=== PATIENT | female | born 1985 | race Caucasian/White ===

== ENCOUNTER 2017-01-12 20:01 | Observation (INO) | payer OTHER ==
[~2017-01-12] VITALS: Ht 160 cm; Wt 109.1 kg
[2017-01-12 20:05] VITALS: BP 139/83; PULSE 117; RESP 18; TEMP 98.3; O2SAT 100
[2017-01-12 20:44] LABS: MEAN CORPUSCULAR HGB CONC 28.5 % (32.0-36.0)
[2017-01-12] MEDS ORDERED: SODIUM CHLORIDE 0.9% FLUSH 5 ML FLUSH IVF PRN (20:45)
[2017-01-12] MEDS ORDERED: ASPIRIN 325 MG TAB PO ONE (20:45)
--- NOTE | 2017-01-12 20:48 | PD ---
HPI Chief Complaint: Syncope/Near-Syncope Time Seen by Provider: 20:03 Travel History International Travel<30 days: No Contact w/Intl Traveler<30days: No Traveled to known affect area: No History of Present Illness HPI 31-year-old female arrives to the ER with a complaint of dizziness, sensation of a racing heart and a chest pressure in the high sternum. 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 Duration is been a couple hours. In the ER she reports mild palpitations as well as mild shortness of breath at rest. With regard to the heaviness about the sternum it has been intermittently present since August and is most commonly associated with over exertion and working long hours. She denies excessive caffeine intake or use of any stimulants. The patient does note taking an [id number] diuretic. Occasionally she takes ibuprofen. Finally she complains of low back pain intermittent chronic in nature with acute worsening today. Occasional paresthesias of both legs are reported however there is no weakness nor is there change in bowel bladder habits or perianal perineal paresthesias/numbness. [facility] Past Medical History Medical History: Denies Significant Hx Diminished Hearing: No Immunizations Current: Yes Tetanus Vaccination: > 5 Years Influenza Vaccination: No ?: Unknown : 0 Para: 0 Past Surgical History Cardiac Surgery: Yes (stent placed) Social History Alcohol Use: Yes (rarely) Tobacco Use: No Substance Use: No Allergies-Medications (Allergen,Severity, Reaction): Coded Allergies: No Known Allergies (Unverified , 01/12/17) Reported Meds & Prescriptions Reported Meds & Active Scripts Active No Active Prescriptions or Reported Medications Review of Systems Except as stated in HPI: all other systems reviewed are Neg General / Constitutional: No: Fever, Chills Cardiovascular: No: Palpitations, Irregular Rhythm Physical Exam Narrative GENERAL: 31-year-old female pleasant mild to moderate distress SKIN: Warm and dry. HEAD: Atraumatic. Normocephalic. EYES: Pupils equal round and reactive. No nystagmus. ENT: No nasal bleeding or discharge. Mucous membranes pink and moist. NECK: Trachea midline. No JVD. CARDIOVASCULAR: Rhythm is regular. Tachycardia to about 115 breath per minute. RESPIRATORY: No accessory muscle use. Clear to auscultation. Breath sounds equal bilaterally. GASTROINTESTINAL: Abdomen soft, non-tender, nondistended. Hepatic and splenic margins not palpable. MUSCULOSKELETAL: No obvious deformities. No clubbing. No cyanosis. No edema. NEUROLOGICAL: Awake and alert. No obvious cranial nerve deficits. Motor grossly within normal limits. Normal speech. PSYCHIATRIC: Appropriate mood and affect; insight and judgment normal. Data Data Last Documented VS Vital Signs Date Time Temp Pulse Resp B/P Pulse Ox O2 Delivery O2 Flow Rate FiO2 01/12/17 20:05 98.3 117 18 139/83 100 Orders Electrocardiogram (01/12/17 20:41) Basic Metabolic Panel (Bmp) (01/12/17 20:41) Ckmb (Isoenzyme) Profile (01/12/17 20:41) Complete Blood Count With Diff (01/12/17 20:41) D-Dimer (01/12/17 20:41) Magnesium (Mg) (01/12/17 20:41) Troponin I (01/12/17 20:41) Chest, Single Ap (01/12/17 20:41) Ecg Monitoring (01/12/17 20:41) Iv Access Insert/Monitor (01/12/17 20:41) Oximetry (01/12/17 20:41) Oxygen Administration (01/12/17 20:41) Sodium Chloride 0.9% Flush (Ns Flush) (01/12/17 20:45) Aspirin (Aspirin) (01/12/17 20:45) Sodium Chlor 0.9% 1000 Ml Inj (Ns 1000 M (01/12/17 21:00) Type And Screen (01/12/17 22:17) Red Blood Cells (Rbc) (01/12/17 22:17) Blood Product Administration .UPON TRANSFUSION (01/12/17:17) Sodium Chlor 0.9% 250 Ml Inj (Ns 250 Ml (01/12/17 22:30) Ferritin (01/12/17 22:48) Iron/Tibc Profile (01/12/17 22:48) Place In Observation (01/12/17 ) Vital Signs (Adult) Q4H (01/12/17 23:01) Activity Oob With Assistance (01/12/17 23:01) Dairy Tester / Telemetry .CONTINUOUS (01/12/17 23:01) Intake + Output DRU.QSHIFT (01/12/17 23:01) Diet Regular Basic (01/13/17 Breakfast) Sodium Chloride 0.9% Flush (Ns Flush) (01/12/17 23:15) Sodium Chloride 0.9% Flush (Ns Flush) (01/13/17 09:00) Ondansetron Inj (Zofran Inj) (01/12/17 23:15) Bisacodyl Supp (Dulcolax Supp) (01/12/17 23:15) Comprehensive Metabolic Panel (01/13/17 06:00) Complete Blood Count With Diff (01/13/17 06:00) Scd Bilateral/Knee High DRU.BID (01/12/17 23:01) [place] Bilateral/Knee High DRU.QSHIFT (01/12/17 23:01) Acetaminophen (Tylenol) (01/12/17 23:15) Acetamin-Hydrocod 325-5 Mg ([place] 5-325 (01/12/17 23:15) Acetamin-Hydrocod 325-10 Mg ([place] 10-32 (01/12/17 23:15) Troponin I (01/13/17 00:00) Troponin I (01/13/17 06:00) Admit Order (Ed Use Only) (01/12/17 23:37) Labs Laboratory Tests Test 01/12/17 01/12/17 01/12/17 21:15 23:00 23:04 White Blood Count 11.2 TH/MM3 Red Blood Count 3.30 MIL/MM3 Hemoglobin 5.2 GM/DL Hematocrit 18.1 % Mean Corpuscular Volume 54.8 FL Mean Corpuscular Hemoglobin 15.6 PG Mean Corpuscular Hemoglobin 28.5 % Concent Red Cell Distribution Width 24.3 % Platelet Count 289 TH/MM3 Mean Platelet Volume 9.5 FL Neutrophils (%) (Auto) 87.9 % Lymphocytes (%) (Auto) 6.9 % Monocytes (%) (Auto) 4.3 % Eosinophils (%) (Auto) 0.2 % Basophils (%) (Auto) 0.7 % Neutrophils # (Auto) 9.9 TH/MM3 Lymphocytes # (Auto) 0.8 TH/MM3 Monocytes # (Auto) 0.5 TH/MM3 Eosinophils # (Auto) 0.0 TH/MM3 Basophils # (Auto) 0.1 TH/MM3 CBC Comment AUTO DIFF Differential Comment AUTO DIFF CONFIRMED Ovalocytes 2+ Keratocytes 1+ D-Dimer Quantitative (PE/DVT) 0.41 MG/L FEU Sodium Level 136 MEQ/L Potassium Level 4.4 MEQ/L Chloride Level 106 MEQ/L Carbon Dioxide Level 21.3 MEQ/L Anion Gap 9 MEQ/L Blood Urea Nitrogen 13 MG/DL Creatinine 0.86 MG/DL Estimat Glomerular Filtration 78 ML/MIN Rate Random Glucose 96 MG/DL Calcium Level 8.5 MG/DL Magnesium Level 2.1 MG/DL Total Creatine Kinase 59 U/L Troponin I LESS THAN 0.02 NG/ML Iron Level 11 MCG/DL Total Iron Binding Capacity 574 MCG/DL Percent Iron Saturation 1.9 % Ferritin 2 NG/ML Blood Type A POSITIVE A POSITIVE Antibody Screen NEGATIVE Crossmatch Leukocyte-Reduced Red Blood Cells Blood Bank Comment MDM Medical Decision Making Medical Screen Exam Complete: Yes Emergency Medical Condition: Yes Medical Record Reviewed: Yes Differential Diagnosis Electrolyte imbalance, arrhythmia, vertigo, anemia, PE, pneumonia, UTI, intrauterine Narrative Course EKG reveals a sinus rhythm with a rate of 116 it's interpreted by the machine as atrial flutter tachycardia with rapid ventricular response however there are clear and obvious P waves in leads I and II, axis normal CBC & BMP Diagram 01/12/17 21:15 Troponin undetectable 2 units PRBCs ordered. The patient be admitted for treatment of symptomatic anemia. she reports heavy menstruation for the past month. d/w Dr Fraire. Diagnosis Primary Impression: Heavy menstrual bleeding Qualified Code: N92.0 - Menorrhagia with regular cycle Additional Impressions: Near syncope Symptomatic anemia Chest pain Qualified Code: R07.9 - Chest pain, unspecified type Admitting Information Admitting Physician Requests: Admit Scripts No Active Prescriptions or Reported Meds José Miguel Skelton MD Jan 12, 2017 20:48
[2017-01-12] MEDS ORDERED: SODIUM CHLOR 0.9% 1000 ML INJ 1,000 ML IV ONE (21:00)
--- NOTE | 2017-01-12 21:15 | RADRPT ---
EXAM DATE/TIME: 01/12/2017 21:06 [place] COMPARISON: No previous studies available for comparison. INDICATIONS : Chest pain. MEDICAL HISTORY : None. SURGICAL HISTORY : None. ENCOUNTER: Initial ACUITY: 1 day PAIN SCORE: 8/10 LOCATION: Bilateral chest FINDINGS: A single view of the chest demonstrates the lungs to be symmetrically aerated without evidence of mas s, infiltrate or effusion. The cardiomediastinal contours are unremarkable. Osseous structures are intact. CONCLUSION: Normal examination. Salvador Decker MD on January 12, 2017 at 21:14 Board Certified Radiologist. This report was verified electronically.
[2017-01-12 22:10] LABS: AUTOMATED NEUTROPHIL # 9.9 TH/MM3 (1.8-7.7); BASOPHIL # 0.1 TH/MM3 (0-0.2); BASOPHIL % 0.7 % (0.0-2.0); EOSINOPHIL % 0.2 % (0.0-4.0); LYMPH % 6.9 % (9.0-44.0); LYMPHOCYTE # 0.8 TH/MM3 (1.0-4.8); MEAN CELL VOLUME 54.8 FL (80.0-100.0); MEAN CORPUSCULAR HEMOGLOBIN 15.6 PG (27.0-34.0); MONO % 4.3 % (0.0-8.0); NEUT % 87.9 % (16.0-70.0); PLATELET COUNT 289 TH/MM3 (150-450); RED CELL DISTRIBUTION WIDTH 24.3 % (11.6-17.2); WHITE BLOOD COUNT 11.2 TH/MM3 (4.0-11.0)
[2017-01-12 22:11] LABS: HEMO FLAGS AUTO DIFF
[2017-01-12 22:12] LABS: HEMATOCRIT 18.1 % (35.0-46.0)
[2017-01-12 22:15] LABS: ANION GAP 9 MEQ/L (5-15); BICARBONATE 21.3 MEQ/L (21.0-32.0); BLOOD UREA NITROGEN 13 MG/DL (7-18); CHLORIDE 106 MEQ/L (98-107); GLOMERULAR FILTRATION RATE 78 ML/MIN (>89); MAGNESIUM 2.1 MG/DL (1.5-2.5); POTASSIUM 4.4 MEQ/L (3.5-5.1); SODIUM (NA) 136 MEQ/L (136-145)
[2017-01-12] MEDS ORDERED: SODIUM CHLOR 0.9% 250 ML INJ 250 ML IV ONE (22:30)
[2017-01-12 22:32] LABS: CREATINE KINASE 59 U/L (26-192); KERATOCYTES 1+ (NORMAL); OVALOCYTES 2+ (NORMAL); SCAN/DIFF AUTO DIFF CONFIRMED
--- NOTE | 2017-01-12 23:09 | HHI.HP ---
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 States she had sudden onset of palpitations, dizziness, chest pain and weakness followed by near syncope. Denies history of similar symptoms. On arrival, BP 139/83, HR 117, O2 sat 100% on RA, Afebrile. WBC 11.2. Hgb 5.2. Trop negative. Chemistry unremarkable. CXR w/ no acute findings. Pt reports h/o heavy menstrual bleeding which has been ongoing since August 2016. States prior to that, she was seen by local Orthodontic Assistant for similar symptoms and was given Progesterone which she states "worked for a little while". Has been having almost daily, heavy bleeding for the last 2-3 months. Has not followed up w/ [facility] since her first visit for further evaluation. 2u pRBC ordered in ER, pending transfusion. Review of Systems Except as stated in HPI: all other systems reviewed are Neg ROS: 14 point review of systems otherwise negative. Past Family Social History Past Medical History PMH: Heavy Menses Past Surgical History PAST SURGICAL HISTORY: Cardiac Stent Allergies: Coded Allergies: No Known Allergies (Unverified , 01/12/17) Family History PAST FAMILY HISTORY: Reviewed. No h/o DM or CAD Social History PAST SOCIAL HISTORY: Negative for alcohol, tobacco or drugs. Physical Exam Vital Signs Vital Signs Date Time Temp Pulse Resp B/P Pulse Ox O2 Delivery O2 Flow Rate FiO2 01/12/17 20:05 98.3 117 18 139/83 100 Physical Exam PE: GENERAL: Pleasant young white female in no acute distress. Mild pallor. HEENT: PERRLA, EOMI. No scleral icterus or conjunctival pallor. No lid lag or facial droop. CARDIOVASCULAR: Regular rate and rhythm. No obvious murmurs to auscultation. No chest tenderness to palpation. RESPIRATORY: No obvious rhonchi or wheezing. Clear to auscultation. Breath sounds equal bilaterally. GASTROINTESTINAL: Abdomen soft, non-tender, nondistended. BS normal. MUSCULOSKELETAL: Extremities without clubbing, cyanosis, or edema. No obvious deformities. NEUROLOGICAL: Awake, alert and oriented x4. No focal neurologic deficits. Moving both upper and lower extremities spontaneously. Laboratory Laboratory Tests Test 01/12/17 21:15 White Blood Count 11.2 Red Blood Count 3.30 Hemoglobin 5.2 Hematocrit 18.1 Mean Corpuscular Volume 54.8 Mean Corpuscular Hemoglobin 15.6 Mean Corpuscular Hemoglobin 28.5 Concent Red Cell Distribution Width 24.3 Platelet Count 289 Mean Platelet Volume 9.5 Neutrophils (%) (Auto) 87.9 Lymphocytes (%) (Auto) 6.9 Monocytes (%) (Auto) 4.3 Eosinophils (%) (Auto) 0.2 Basophils (%) (Auto) 0.7 Neutrophils # (Auto) 9.9 Lymphocytes # (Auto) 0.8 Monocytes # (Auto) 0.5 Eosinophils # (Auto) 0.0 Basophils # (Auto) 0.1 CBC Comment AUTO DIFF Differential Comment AUTO DIFF CONFIRMED Ovalocytes 2+ Keratocytes 1+ D-Dimer Quantitative (PE/DVT) 0.41 Sodium Level 136 Potassium Level 4.4 Chloride Level 106 Carbon Dioxide Level 21.3 Anion Gap 9 Blood Urea Nitrogen 13 Creatinine 0.86 Estimat Glomerular Filtration 78 Rate Random Glucose 96 Calcium Level 8.5 Magnesium Level 2.1 Total Creatine Kinase 59 Troponin I LESS THAN 0.02 Result Diagram: 01/12/17211401/12/172114 Assessment and Plan Problem List: (1) Near syncope ICD Code: R55 Status: Acute (2) Symptomatic anemia ICD Code: D64.9 Status: Acute (3) Chest pain ICD Code: R07.9 Status: Acute (4) Heavy menstrual bleeding ICD Code: N92.0 Status: Acute Assessment and Plan A/P: 1. Near Syncope: secondary to hypovolemia from blood loss. Admit for Observation, telemetry, transfuse. 2. Symptomatic Anemia: Hgb 5.2, no previous labs for comparison. Reports heavy, almost daily menstrual bleeding x2-3 months, previously seen by Orthodontic Assistant and placed on Progesterone w/ only temporary improvement. Has not followed up w / Orthodontic Assistant since, states she's pending insurance so she can switch doctors. Check Ferritin, TIBC/Iron, 2u pRBC ordered for transfusion, currently pending. Check Hgb/Hct following transfusion, will likely require additional units. Follow up w/ Orthodontic Assistant for abnormal menses. 3. Chest Pain: Likely secondary to symptomatic anemia and near syncope. Initial trop negative. Place on telemetry, check serial enzymes. 4. DVT Prophylaxis: SCD/Teds. 5. Social work for d/c planning as needed. 6. Case discussed w/ ER physician at length. Laura Fraire MD Jan 12, 2017 23:09
[2017-01-12] MEDS ORDERED: ACETAMINOPHEN 325 MG TAB PO PRN (23:15)
[2017-01-12] MEDS ORDERED: BISACODYL 10 MG SUPP PR PRN (23:15)
[2017-01-12] MEDS ORDERED: ACETAMINOPHEN/HYDROcodone 325 MG/5 MG TAB PO PRN (23:15)
[2017-01-12] MEDS ORDERED: SODIUM CHLORIDE 0.9% FLUSH 5 ML FLUSH FLUSH PRN (23:15)
[2017-01-12] MEDS ORDERED: ONDANSETRON HCL 4 MG/2 ML VIAL IVP PRN (23:15)
[2017-01-12] MEDS ORDERED: ACETAMINOPHEN/HYDROcodone 325 MG/10 MG TAB PO PRN (23:15)
[2017-01-13] VITALS (26 sets, daily range): BP systolic 115–145; BP diastolic 66–92; PULSE 84–106; RESP 16–20; TEMP 97.2–98.3; O2SAT 97–100
[2017-01-13 00:11] LABS: FERRITIN 2 NG/ML (8-252); TRANSFERRIN IRON PROFILE 410 MG/DL (200-360)
[2017-01-13 09:37] LABS: AUTOMATED NEUTROPHIL # 6.1 TH/MM3 (1.8-7.7); BASOPHIL # 0.1 TH/MM3 (0-0.2); BASOPHIL % 0.9 % (0.0-2.0); EOSINOPHIL # 0.1 TH/MM3 (0-0.4); EOSINOPHIL % 0.7 % (0.0-4.0); LYMPH % 13.2 % (9.0-44.0); MEAN CELL VOLUME 60.2 FL (80.0-100.0); MEAN CORPUSCULAR HGB CONC 31.5 % (32.0-36.0); MONO % 7.7 % (0.0-8.0); NEUT % 77.5 % (16.0-70.0); PLATELET COUNT 259 TH/MM3 (150-450); RED BLOOD COUNT 3.55 MIL/MM3 (4.00-5.30); RED CELL DISTRIBUTION WIDTH 31.3 % (11.6-17.2); WHITE BLOOD COUNT 7.8 TH/MM3 (4.0-11.0)
[2017-01-13 09:41] LABS: HEMO FLAGS AUTO DIFF
[2017-01-13 09:47] LABS: HEMATOCRIT 21.4 % (35.0-46.0)
[2017-01-13 10:14] LABS: ALKALINE PHOSPHATASE 56 U/L (45-117); ALT (GPT) 15 U/L (10-53); ANION GAP 12 MEQ/L (5-15); AST (GOT) 7 U/L (15-37); BICARBONATE 21.8 MEQ/L (21.0-32.0); BLOOD UREA NITROGEN 9 MG/DL (7-18); CHLORIDE 105 MEQ/L (98-107); GLOMERULAR FILTRATION RATE 89 ML/MIN (>89); POTASSIUM 3.9 MEQ/L (3.5-5.1); SODIUM (NA) 139 MEQ/L (136-145); TOTAL BILIRUBIN ADULT 1.1 MG/DL (0.2-1.0)
[2017-01-13 10:45] LABS: OVALOCYTES 1+ (NORMAL)
[2017-01-13] MEDS ORDERED: SODIUM CHLOR 0.9% 250 ML INJ 250 ML IV ONE (10:45)
[2017-01-13 10:46] LABS: PLATELET ESTIMATE SMEAR NORMAL (NORMAL); PLATELET MORPHOLOGY NORMAL (NORMAL); SCAN/DIFF AUTO DIFF CONFIRMED
--- NOTE | 2017-01-13 11:02 | HHI.PR ---
Subjective Remarks Follow-up for symptomatic anemia with menometrorrhagia. The patient reports feeling much better today after receiving two units pRBCs, however hemoglobin still 6.7. She denies any headache, lightheadedness, dizziness, chest pain, palpitations, shortness of breath today. She still has ongoing menstrual bleeding, however not as heavy as it has been recently. She has been on progesterone in the past which helped slightly while she was taking it however the bleeding returns as soon as she stops the medication. She has bleeding on most days throughout the month, only stops for 1-3days at a time. Objective Vitals Vital Signs Date Time Temp Pulse Resp B/P Pulse Ox O2 Delivery O2 Flow Rate FiO2 01/13/17 07:46 97.2 97 18 128/77 99 01/13/17 07:16 98.0 92 17 139/76 98 01/13/17 06:12 98.3 93 18 115/77 99 01/13/17 05:54 98.1 94 17 130/74 99 01/13/17 05:34 98.1 88 17 128/67 98 01/13/17 05:06 98.3 91 18 131/68 100 01/13/17 05:04 98.2 89 18 131/68 100 01/13/17 03:30 98.1 91 16 122/68 100 01/13/17 02:35 88 01/13/17 02:28 98.0 97 18 127/71 100 01/13/17 02:08 98.0 94 18 126/71 100 01/13/17 01:48 98.2 93 17 132/88 100 01/13/17 01:16 98.0 93 18 126/82 100 01/12/17 20:05 98.3 117 18 139/83 100 I/O 01/12/17 01/12/17 01/12/17 01/13/17 01/13/17 01/13/17 07:00 15:00 23:00 07:00 15:00 23:00 Intake Total 490 ml Balance 490 ml Intake Oral 240 ml Packed Cells 250 ml Result Diagram: 01/13/1790601/13/17906 Imaging Last Impressions Chest X-Ray 01/12/172040 Signed Impressions: Service Date/Time: December 21:06 - CONCLUSION: Normal examination. Salvador Decker MD Objective Remarks GENERAL: Well-nourished, well-developed obese female patient in [facility]. SKIN: Warm and dry. No rash. Pale. HEAD: Normocephalic. Atraumatic. EYES: Pupils equal and round. No scleral icterus. No injection or drainage. ENT: No nasal bleeding or discharge. Mucous membranes pink and moist. NECK: Supple. Trachea midline. CARDIOVASCULAR: Regular rate and rhythm. S1, S2 noted. No murmur appreciated. RESPIRATORY: No accessory muscle use. Clear to auscultation. Breath sounds equal bilaterally. GASTROINTESTINAL: Abdomen soft, non-tender, nondistended. Normoactive bowel sounds x4. MUSCULOSKELETAL: No obvious deformities. Extremities without clubbing, cyanosis , or edema. NEUROLOGICAL: Awake and alert. No obvious cranial nerve deficits. Motor grossly within normal limits. Normal speech. PSYCHIATRIC: Appropriate mood and affect; insight and judgment normal. Medications and IVs Current Medications Medications (Trade) Dose Ordered Sig/Kely Route Start Time Stop Time Status Last Admin (NS Flush) 2 ml UNSCH PRN FLUSH 01/12/17 23:15 (NS Flush) 2 ml BID FLUSH 01/13/17 09:00 (Zofran Inj) 4 mg Q6H PRN IVP 01/12/17 23:15 (Dulcolax Supp) 10 mg DAILY PRN [place] 01/12/17 23:15 (Tylenol) 650 mg Q6H PRN PO 01/12/17 23:15 ([place] 5-325 Mg) 1 tab Q4H PRN PO 01/12/17 23:15 Acetaminophen/ Hydrocodone Bitart 1 tab 1 tab Q4H PRN PO 01/12/17 23:15 (NS 250 ml Inj) 250 ml @ 15 mls/hr ONCE ONCE IV 01/13/17 10:45 01/14/17 03:24 A/P Problem List: (1) Near syncope ICD Code: R55 Status: Acute (2) Symptomatic anemia ICD Code: D64.9 Status: Acute (3) Chest pain ICD Code: R07.9 Status: Acute (4) Heavy menstrual bleeding ICD Code: N92.0 Status: Acute Assessment and Plan 31-year-old female with a 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 Near Syncope: secondary to hypovolemia from blood loss. Admit for Observation , telemetry, transfuse. Symptoms improved. Symptomatic Anemia: Hgb 5.2, no previous labs for comparison. Secondary to menstrual bleeding, see below. Ferritin low, TIBC high, Iron and % saturation low. S/p 2u pRBC transfusion. Repeat H&H Check Hgb/Hct 6.7/21.4. Give another 2u pRBCs. Menometrorrhagia: Reports heavy, almost daily menstrual bleeding since , previously seen by [facility] and placed on Progesterone w/ only temporary improvement. Has not followed up w/ [facility] since, states she's changing insurance so she can switch doctors. Check pelvic U/S. Consult gynecology. Chest Pain: Likely secondary to symptomatic anemia and near syncope. ACS ruled out with negative cardiac enzymes 3, and EKG without acute ischemic changes. Chest pain resolved. DVT Prophylaxis: SCD/Teds. Discussed with Dr. Holcomb. Problem Qualifiers (1) Chest pain: Qualified Code: R07.9 - Chest pain, unspecified type (2) Heavy menstrual bleeding: Qualified Code: N92.0 - Menorrhagia with regular cycle Helena Adkins PA-C Jan 13, 2017 11:01
--- NOTE | 2017-01-13 11:45 | PD.CONS ---
HPI Chief Complaint Lightheaded, dizzy, vaginal bleeding Date Seen: Jan 13, 2017 Time Seen: 11:00 (Jerrod Bloom MD R2) Travel History International Travel<30 Days: No Contact w/Intl Traveler<30Days: No Known Affected Area: No (Jerrod Bloom MD R2) History of Present Illness HPI 31 year old G0 presented with dizziness, lightheadedness, chest pressure, and vaginal bleeding. She's had abnormal vaginal bleeding for one and a half years that has gotten progressively worse. She's had intermittent heavy bleeding since the end of October. She had regular periods 1.5 years ago and since that time, menstruation has been irregular/sporadic. Since late October, she's had nearly continuous bleeding, that is intermittently heavy and intermittently light. Currently her bleeding is light to moderate. She reports no history of sexual activity in her lifetime. Menarche occurred at age 13. She has never used control. She has never had a Pap smear. 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 She tried progesterone for abnormal uterine bleeding in the past which alleviated symptoms for a month or two, but symptoms recurred. She has received 2 units PRBC for symptomatic anemia with hgb of 5.2. Hgb is 6.7 after transfusion, and she is scheduled for another 2 units. She is no longer symptomatic, with dizziness, lightheadedness, and chest pressure resolving. She has no pelvic pain. (Jerrod Bloom MD R2) History Past Medical History Narrative Medical Patent ductus arteriosus? She is uncertain, but describes something in her heart that should have closed at but didn't. It was repaired. (Jerrod Bloom MD R2) Obstetric History Obstetric History G0 Menarche age 13 [address] active [address] 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 [place] Never had Pap smear Periods irregular for last 1.5 years (Jerrod Bloom MD R2) Past Surgical History Narrative Surgical Age 18: PDA closed (Jerrod Bloom MD R2) Family History Narrative Family History None significant (Jerrod Bloom MD R2) Social History Narrative Social History Never smoker No alcohol use No drug use (Jerrod Bloom MD R2) Allergies-Medications (Allergen,Severity, Reaction): Coded Allergies: No Known Allergies (Unverified , 01/12/17) Home Meds No Active Prescriptions or Reported Meds Review of Systems Except as stated in HPI: all other systems reviewed are Neg (Jerrod Bloom MD R2) Physical Exam Vital Signs Date Time Temp Pulse Resp B/P Pulse Ox O2 Delivery O2 Flow Rate FiO2 01/13/17 07:46 97.2 97 18 128/77 99 01/13/17 07:16 98.0 92 17 139/76 98 01/13/17 06:12 98.3 93 18 115/77 99 01/13/17 05:54 98.1 94 17 130/74 99 01/13/17 05:34 98.1 88 17 128/67 98 01/13/17 05:06 98.3 91 18 131/68 100 01/13/17 05:04 98.2 89 18 131/68 100 01/13/17 03:30 98.1 91 16 122/68 100 01/13/17 02:35 88 01/13/17 02:28 98.0 97 18 127/71 100 01/13/17 02:08 98.0 94 18 126/71 100 01/13/17 01:48 98.2 93 17 132/88 100 01/13/17 01:16 98.0 93 18 126/82 100 01/12/17 20:05 98.3 117 18 139/83 100 Narrative GENERAL: Well-nourished, well-developed patient. BMI 42.6. SKIN: Warm and dry. HEAD: Normocephalic and atraumatic. EYES: No scleral icterus. No injection or drainage. ENT: No nasal drainage noted. Mucous membranes pink. Airway patent. NECK: Supple, trachea midline. No JVD. CARDIOVASCULAR: Regular rate and rhythm without murmurs, gallops, or rubs. RESPIRATORY: Breath sounds equal bilaterally. No accessory muscle use. BREASTS: Bilateral exam showed no masses , no retractions, no nipple discharge. ABDOMEN/GI: Abdomen soft, non-tender, bowel sounds present, no rebound, no guarding. Uterus and ovaries non-palpable. GENITOURINARY: Attempted pelvic exam, did not tolerate. Noted light/moderate blood at introitus. EXTREMITIES: No cyanosis or edema. BACK: Nontender without obvious deformity. No CVA tenderness. NEUROLOGICAL: Awake and alert. (Jerrod Bloom MD R2) Data Data Vital Signs Reviewed: Yes Orders Electrocardiogram (01/12/17 20:41) Basic Metabolic Panel (Bmp) (01/12/17 20:41) Ckmb (Isoenzyme) Profile (01/12/17 20:41) Complete Blood Count With Diff (01/12/17 20:41) D-Dimer (01/12/17 20:41) Magnesium (Mg) (01/12/17 20:41) Troponin I (01/12/17 20:41) Chest, Single Ap (01/12/17 20:41) Ecg Monitoring (01/12/17 20:41) Iv Access Insert/Monitor (01/12/17 20:41) Oximetry (01/12/17 20:41) Oxygen Administration (01/12/17 20:41) Sodium Chloride 0.9% Flush (Ns Flush) (01/12/17 20:45) Aspirin (Aspirin) (01/12/17 20:45) Sodium Chlor 0.9% 1000 Ml Inj (Ns 1000 M (01/12/17 21:00) Type And Screen (01/12/17:) Red Blood Cells (Rbc) (01/12/17 22:17) Blood Product Administration .UPON TRANSFUSION (01/12/17:17) Sodium Chlor 0.9% 250 Ml Inj (Ns 250 Ml (01/12/17 22:30) Ferritin (01/12/17 22:48) Iron/Tibc Profile (01/12/17 22:48) Place In Observation (01/12/17 ) Vital Signs (Adult) Q4H (01/12/17 23:01) Activity Oob With Assistance (01/12/17 23:01) Slide Developer / Telemetry .CONTINUOUS (01/12/17 23:01) Intake + Output DRU.QSHIFT (01/12/17 23:01) Diet Regular Basic (01/13/17 Breakfast) Sodium Chloride 0.9% Flush (Ns Flush) (01/12/17 23:15) Sodium Chloride 0.9% Flush (Ns Flush) (01/13/17 09:00) Ondansetron Inj (Zofran Inj) (01/12/17 23:15) Bisacodyl Supp (Dulcolax Supp) (01/12/17 23:15) Comprehensive Metabolic Panel (01/13/17 06:00) Complete Blood Count With Diff (01/13/17 06:00) Scd Bilateral/Knee High DRU.BID (01/12/17 23:01) [place] Bilateral/Knee High DRU.QSHIFT (01/12/17 23:01) Acetaminophen (Tylenol) (01/12/17 23:15) Acetamin-Hydrocod 325-5 Mg ([place] 5-325 (01/12/17 23:15) Acetamin-Hydrocod 325-10 Mg ([place] 10-32 (01/12/17 23:15) Troponin I (01/13/17 00:00) Troponin I (01/13/17 06:00) Admit Order (Ed Use Only) (01/12/17 23:37) Physician Name Changes (01/13/17 ) Consult Gynecology (01/13/17 ) (Hub Use Only)Inp Phy Cons/Ref (01/13/17 ) Red Blood Cells (Rbc) (01/13/17 10:38) Blood Product Administration .UPON TRANSFUSION (01/13/17 10:38) Sodium Chlor 0.9% 250 Ml Inj (Ns 250 Ml (01/13/17 10:45) Us Pelvis Comp Electric Knife Operator/Non-Preg (01/13/17 ) Labs Laboratory Tests Test 01/12/17 01/12/17 01/12/17 01/13/17 21:15 23:00 23:04 00:15 White Blood Count 11.2 Red Blood Count 3.30 Hemoglobin 5.2 Hematocrit 18.1 Mean Corpuscular Volume 54.8 Mean Corpuscular Hemoglobin 15.6 Mean Corpuscular Hemoglobin 28.5 Concent Red Cell Distribution Width 24.3 Platelet Count 289 Mean Platelet Volume 9.5 Neutrophils (%) (Auto) 87.9 Lymphocytes (%) (Auto) 6.9 Monocytes (%) (Auto) 4.3 Eosinophils (%) (Auto) 0.2 Basophils (%) (Auto) 0.7 Neutrophils # (Auto) 9.9 Lymphocytes # (Auto) 0.8 Monocytes # (Auto) 0.5 Eosinophils # (Auto) 0.0 Basophils # (Auto) 0.1 CBC Comment AUTO DIFF Differential Comment AUTO DIFF CONFIRMED Ovalocytes 2+ Keratocytes 1+ D-Dimer Quantitative (PE/DVT) 0.41 Sodium Level 136 Potassium Level 4.4 Chloride Level 106 Carbon Dioxide Level 21.3 Anion Gap 9 Blood Urea Nitrogen 13 Creatinine 0.86 Estimat Glomerular Filtration 78 Rate Random Glucose 96 Calcium Level 8.5 Magnesium Level 2.1 Total Creatine Kinase 59 Troponin I LESS THAN 0.02 LESS THAN 0.02 Iron Level 11 Total Iron Binding Capacity 574 Percent Iron Saturation 1.9 Ferritin 2 Blood Type A POSITIVE A POSITIVE Antibody Screen NEGATIVE Crossmatch Leukocyte-Reduced Red Blood Cells Blood Bank Comment Test 01/13/17 01/13/17 09:07 10:38 White Blood Count 7.8 Red Blood Count 3.55 Hemoglobin 6.7 Hematocrit 21.4 Mean Corpuscular Volume 60.2 Mean Corpuscular Hemoglobin 19.0 Mean Corpuscular Hemoglobin 31.5 Concent Red Cell Distribution Width 31.3 Platelet Count 259 Mean Platelet Volume 9.4 Neutrophils (%) (Auto) 77.5 Lymphocytes (%) (Auto) 13.2 Monocytes (%) (Auto) 7.7 Eosinophils (%) (Auto) 0.7 Basophils (%) (Auto) 0.9 Neutrophils # (Auto) 6.1 Lymphocytes # (Auto) 1.0 Monocytes # (Auto) 0.6 Eosinophils # (Auto) 0.1 Basophils # (Auto) 0.1 CBC Comment AUTO DIFF Differential Comment AUTO DIFF CONFIRMED Platelet Estimate NORMAL Platelet Morphology Comment NORMAL Ovalocytes 1+ Sodium Level 139 Potassium Level 3.9 Chloride Level 105 Carbon Dioxide Level 21.8 Anion Gap 12 Blood Urea Nitrogen 9 Creatinine 0.77 Estimat Glomerular Filtration 89 Rate Random Glucose 100 Calcium Level 8.3 Total Bilirubin 1.1 Aspartate Amino Transf 7 (AST/SGOT) Alanine Aminotransferase 15 (ALT/SGPT) Alkaline Phosphatase 56 Troponin I LESS THAN 0.02 Total Protein 6.5 Albumin 3.4 Blood Type A POSITIVE Crossmatch Leukocyte-Reduced Red Blood Cells Blood Bank Comment (Jerrod Bloom MD R2) Labs Last 48 hours Impressions Pelvis Ultrasound 01/13/17 0000 Signed Impressions: Service Date/Time: Friday, January 13, 2017 13:20 - CONCLUSION: 1. Uterus is grossly unremarkable. 2. Small bilateral ovarian cysts. Dale Mcdermott MD Chest X-Ray 01/12/172040 Signed Impressions: Service Date/Time: December 21:06 - CONCLUSION: Normal examination. Salvador Decker MD (Lillian Lehman MD) [facility] Medical Record Reviewed: Yes Interpretation(s) 31 year old female with vaginal bleeding of unknown etiology, likely anovulatory bleeding in obese female. Also with resultant symptomatic anemia. Status post 2 units PRBC with 2 more pending. - Monitor H&H's, transfuse as needed. - unlikely, will check test to rule out for certain. - Will benefit from combined oral contraceptive as an outpatient, one pill per day. Progesterone IUD and depo-provera are other options, although depo-provera can cause weight gain. - Will get pelvic and transvaginal ultrasound to assess for possible fibroids, other structural anomalies. - Will give iron supplements. Seen and discussed with Dr. Lehman, Dr. Natalya Gaona Admitting diagnosis: Anemia, Near Syncope (Jerrod Bloom MD R2) Scripts No Active Prescriptions or Reported Meds Collaborating MD Comments Patient seen and examined with residents. Anovulatory bleed resulting in symptomatic anemia. Plan to treat with 35mcg control pills Q8 x 3 then taper. Continue Ortho Novum as on outpatient with followup to nurse obgyn (Lillian Lehman MD ) Jerrod Bloom MD R2 Jan 13, 2017 11:45 Lillian Lehman MD Jan 13, 2017 15:58
[2017-01-13] MEDS: SODIUM CHLORIDE 0.9% FLUSH 5 ML FLUSH FLUSH SCH ×2 (11:58→21:10)
[2017-01-13] MEDS ORDERED: PILL SPLITTER OTHER PRN (12:15)
[2017-01-13 12:30] LABS: BETA HCG QUANT LESS THAN 1 MIU/ML (0-5)
[2017-01-13] MEDS: FERROUS SULFATE 325 MG (65 MG ELEMENTAL IRON) TAB PO SCH (13:12)
[2017-01-13] MEDS: ASCORBIC ACID 500 MG TAB PO SCH (13:12)
--- NOTE | 2017-01-13 15:05 | RADRPT ---
EXAM DATE/TIME: 01/13/2017 13:20 [place] COMPARISON: No previous studies available for comparison. INDICATIONS : Vaginal bleeding. MEDICAL HISTORY : Vaginal bleeding. SURGICAL HISTORY : Coronary artery stent. ENCOUNTER: Initial ACUITY: 1 month PAIN SCORE: 2/10 LOCATION: Bilateral pelvis MEASUREMENTS: UTERUS: 10.0 x 4.2 x 5.3 cm ENDOMETRIAL STRIPE: 8 mm RIGHT OVARY: 4.0 x 3.3 x 3.3 cm LEFT OVARY: 3.9 x 3.5 x 3.1 cm FINDINGS: UTERUS: The myometrium has homogeneous echotexture without mass. The endometrial cavity is empty. RIGHT OVARY: Right ovarian cyst measuring 3.1 cm. LEFT OVARY: Left ovarian cyst measuring 2.4 cm. MISCELLANEOUS: No free fluid. CONCLUSION: 1. Uterus is grossly unremarkable. 2. Small bilateral ovarian cysts. Dale Mcdermott MD on January 13, 2017 at 15:02 Board Certified Radiologist. This report was verified electronically.
[2017-01-13] MEDS ORDERED: ETHINYL ESTRADIOL PO SCH (18:00)
[2017-01-13] MEDS ORDERED: NORETHINDRONE PO SCH (18:00)
--- NOTE | 2017-01-13 21:58 | EKG ---
Date Performed: 01/12/2017 Time Performed: 20:10:16 PTAGE: 31 years EKG: SINUS TACHYCARDIA ABNORMAL RHYTHM ECG NO PREVIOUS TRACING DOCTOR: Ash Hunter Interpretating Date/Time 01/13/2017 21:57:46
[2017-01-14 04:13] VITALS: BP 152/84; PULSE 89; RESP 18; TEMP 98.8; O2SAT 98
[2017-01-14 07:07] LABS: AUTOMATED NEUTROPHIL # 7.7 TH/MM3 (1.8-7.7); BASOPHIL # 0.1 TH/MM3 (0-0.2); EOSINOPHIL # 0.1 TH/MM3 (0-0.4); EOSINOPHIL % 1.4 % (0.0-4.0); HEMATOCRIT 26.6 % (35.0-46.0); LYMPH % 15.3 % (9.0-44.0); LYMPHOCYTE # 1.6 TH/MM3 (1.0-4.8); MEAN CELL VOLUME 65.2 FL (80.0-100.0); MEAN CORPUSCULAR HEMOGLOBIN 20.5 PG (27.0-34.0); MEAN CORPUSCULAR HGB CONC 31.5 % (32.0-36.0); MONO % 6.9 % (0.0-8.0); NEUT % 75.4 % (16.0-70.0); PLATELET COUNT 247 TH/MM3 (150-450); RED BLOOD COUNT 4.09 MIL/MM3 (4.00-5.30); RED CELL DISTRIBUTION WIDTH 33.5 % (11.6-17.2); WHITE BLOOD COUNT 10.2 TH/MM3 (4.0-11.0)
[2017-01-14 07:36] VITALS: PULSE 81
[2017-01-14 07:42] LABS: HEMO FLAGS AUTO DIFF
[2017-01-14] MEDS ORDERED: NORETHINDRONE PO SCH (08:00)
[2017-01-14] MEDS ORDERED: ETHINYL ESTRADIOL PO SCH (08:00)
[2017-01-14] MEDS: FERROUS SULFATE 325 MG (65 MG ELEMENTAL IRON) TAB PO SCH (08:09)
[2017-01-14] MEDS: ASCORBIC ACID 500 MG TAB PO SCH (08:09)
[2017-01-14] MEDS: SODIUM CHLORIDE 0.9% FLUSH 5 ML FLUSH FLUSH SCH (08:09)
[2017-01-14 08:29] VITALS: BP 141/82; PULSE 99; RESP 18; TEMP 98.3; O2SAT 96
[2017-01-14] MEDS ORDERED: ORTHO NOVUM PO (10:10)
[2017-01-14] MEDS ORDERED: VITA500T PO (10:10)
[2017-01-14] MEDS ORDERED: FERR325T PO (10:10)
--- NOTE | 2017-01-14 10:11 | HHI.DCPOC ---
Discharge Care Plan Diagnosis: (1) Symptomatic anemia (2) Heavy menstrual bleeding Goals to Promote Your Health * To prevent worsening of your condition and complications * To maintain your health at the optimal level Directions to Meet Your Goals Take your medications as prescribed Follow your dietary instruction Follow activity as directed Keep your appointments as scheduled Take your immunizations and boosters as scheduled If your symptoms worsen call your PCP, if no PCP go to Urgent Care Center or Emergency Room Smoking is Dangerous to Your Health. Avoid second hand smoke Call the 24-hour hour crisis hotline for domestic abuse at Helena Adkins PA-C Jan 14, 2017 10:11
--- NOTE | 2017-01-14 10:13 | HHI.PR ---
Subjective Remarks Follow-up for symptomatic anemia with menometrorrhagia. Patient reports feeling completely back to normal today. Her vaginal bleeding has resolved. She has been ambulating to the restroom without difficulty, denies any lightheadedness, dizziness, chest pain, shortness of breath. She states her insurance will take effect January 22 and she plans to see a environmental sampling technician as soon as possible. Gynecology here has started her on control, the patient is very thankful. She wants to go home. Objective Vitals Vital Signs Date Time Temp Pulse Resp B/P Pulse Ox O2 Delivery O2 Flow Rate FiO2 01/14/17 08:29 98.3 99 18 141/82 96 01/14/17 04:13 98.8 89 18 152/84 98 01/13/17 23:53 98.0 104 19 133/88 98 01/13/17 22:41 97 01/13/17 20:53 97.5 100 18 135/92 100 01/13/17 19:47 98.2 98 20 136/75 100 01/13/17 18:29 97.9 95 18 145/70 97 01/13/17 17:43 97.4 93 18 135/81 98 01/13/17 17:02 91 01/13/17 16:56 97.6 84 17 124/77 100 01/13/17 15:51 97.8 96 16 123/74 99 01/13/17 15:38 97.6 98 20 142/76 100 01/13/17 14:35 97.7 96 16 125/70 97 01/13/17 14:13 97.6 95 18 140/73 98 01/13/17 11:42 97.2 106 19 122/66 98 I/O 01/13/17 01/13/17 01/13/17 01/14/17 01/14/17 01/14/17 07:00 15:00 23:00 07:00 15:00 23:00 Intake Total 490 ml 250 ml Balance 490 ml 250 ml Intake Oral 240 ml Packed Cells 250 ml 250 ml Result Diagram: 01/14/17 0624 01/13/17 0907 Imaging Last Impressions Pelvis Ultrasound 01/13/17 0000 Signed Impressions: Service Date/Time: Friday, January 13, 2017 13:20 - CONCLUSION: 1. Uterus is grossly unremarkable. 2. Small bilateral ovarian cysts. Dale Mcdermott MD Chest X-Ray 01/12/172040 Signed Impressions: Service Date/Time: December 21:06 - CONCLUSION: Normal examination. Salvador Decker MD Objective Remarks GENERAL: Well-nourished, well-developed obese female patient in [facility]. SKIN: Warm and dry. No rash. Much more pink today, not pale. HEAD: Normocephalic. Atraumatic. EYES: Pupils equal and round. No scleral icterus. No injection or drainage. ENT: No nasal bleeding or discharge. Mucous membranes pink and moist. NECK: Supple. Trachea midline. CARDIOVASCULAR: Regular rate and rhythm. S1, S2 noted. No murmur appreciated. RESPIRATORY: No accessory muscle use. Clear to auscultation. Breath sounds equal bilaterally. GASTROINTESTINAL: Abdomen soft, non-tender, nondistended. Normoactive bowel sounds x4. MUSCULOSKELETAL: No obvious deformities. Extremities without clubbing, cyanosis , or edema. NEUROLOGICAL: Awake and alert. No obvious cranial nerve deficits. Motor grossly within normal limits. Normal speech. PSYCHIATRIC: Appropriate mood and affect; insight and judgment normal. Medications and IVs Current Medications Medications (Trade) Dose Ordered Sig/Kely Route Start Time Stop Time Status Last Admin (NS Flush) 2 ml UNSCH PRN FLUSH 01/12/17 23:15 (NS Flush) 2 ml BID FLUSH 01/13/17 09:00 01/14/17 08:09 (Zofran Inj) 4 mg Q6H PRN IVP 01/12/17 23:15 (Dulcolax Supp) 10 mg DAILY PRN HI 01/12/17 23:15 (Tylenol) 650 mg Q6H PRN PO 01/12/17 23:15 ([place] 5-325 Mg) 1 tab Q4H PRN PO 01/12/17 23:15 (Exira 10-325 Mg) 1 tab Q4H PRN PO 01/12/17 23:15 (Ferrous Sulfate) 325 mg DAILY PO 01/13/17 12:00 01/14/17 08:09 (Vitamin C) 250 mg DAILY PO 01/13/17 12:00 01/14/17 08:09 (Pill Splitter) 1 ea UNSCH PRN OTHER 01/13/17 12:15 Non-Formulary Medication 1 units TID@00,08,16 PO 01/14/17 08:00 01/14/17 08:00 Urinary Catheter: No Vascular Central Line Catheter: No A/P Problem List: (1) Near syncope ICD Code: R55 Status: Acute (2) Symptomatic anemia ICD Code: D64.9 Status: Acute (3) Chest pain ICD Code: R07.9 Status: Acute (4) Heavy menstrual bleeding ICD Code: N92.0 Status: Acute Assessment and Plan 31-year-old female with a 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 Near Syncope: secondary to hypovolemia from blood loss. Monitored in Observation, telemetry, transfused as below. Symptoms resolved. Symptomatic Anemia: Hgb 5.2, no previous labs for comparison. Secondary to menstrual bleeding, see below. Ferritin low, TIBC high, Iron and % saturation low. S/p 2u pRBC transfusion. Repeat H&H Check Hgb/Hct 6.7/21.4. Given another 2u pRBCs for a total of 4units throughout admission. Hgb 8.4 today, no further bleeding. Started on ferrous sulfate. Menometrorrhagia: Reports heavy, almost daily menstrual bleeding since , previously seen by Slip Cover Estimator and placed on Progesterone w/ only temporary improvement. Has not followed up w/ Slip Cover Estimator since, states she's changing insurance so she can switch doctors. Pelvic U/S essentially unremarkable. Consult gynecology, started the patient on control, bleeding resolved overnight. Outpatient f/up. Chest Pain: Likely secondary to symptomatic anemia and near syncope. ACS ruled out with negative cardiac enzymes 3, and EKG without acute ischemic changes. Chest pain resolved. DVT Prophylaxis: SCD/Teds. Discussed with Dr. Holcomb. Discharge Planning Discharge patient to home Condition on discharge: Improved Regular Diet as tolerated Ad [place] activity Rx written: ferrous sulfate. Ortho-Novum Follow-up with primary care physician and gynecology Check CBC in 3-5 days Attending Statement The exam, history, and the medical decision-making described in the above note were completed with the assistance of the mid-level provider. I reviewed and agree with the findings presented. I attest that I had a [id number] encounter with the patient on the same day, and personally performed and documented my assessment and findings in the medical record. Problem Qualifiers (1) Chest pain: Qualified Code: R07.9 - Chest pain, unspecified type (2) Heavy menstrual bleeding: Qualified Code: N92.0 - Menorrhagia with regular cycle Helena Adkins PA-C Jan 14, 2017 10:13 Baltazar Holcomb MD Jan 16, 2017 03:01
[2017-01-14 11:43] VITALS: BP 125/75; PULSE 85; RESP 20; TEMP 99; O2SAT 97
[2017-01-14 15:38] LABS: OVALOCYTES 1+ (NORMAL); PLATELET ESTIMATE SMEAR NORMAL (NORMAL); PLATELET MORPHOLOGY NORMAL (NORMAL); SCAN/DIFF AUTO DIFF CONFIRMED
== END 2017-01-14 14:17 | disposition home or self-care (01) ==
LOC: NEPE 20:01 → NEDA 23:37 → INTOOBSV 23:37 → NEPHCDU 01-13 01:26 → UNDODISIN 01-14 14:17
PROVIDERS: ADMIT Internal Medicine; ATTEND Internal Medicine
DX: N92.0 Excessive and frequent menstruation with regular cycle (principal); D64.9 Anemia, unspecified; R07.9 Chest pain, unspecified; R42 Dizziness and giddiness; R06.02 Shortness of breath; R00.2 Palpitations; M54.5 Low back pain; R20.2 Paresthesia of skin; E86.1 Hypovolemia; I48.92 Unspecified atrial flutter; Z95.5 Presence of coronary angioplasty implant and graft; N83.202 Unspecified ovarian cyst, left side; N83.201 Unspecified ovarian cyst, right side
CPT/HCPCS: 36430; 71010; 76856; 80048; 80053; 82550; 82728; 83540; 83550; 83735; 84484; 84702; 85025; 85379; 86850; 86900; 86901; 86920; 93005; 96360; 99285; G0378; J7030; J7050; P9016

== ENCOUNTER 2017-01-17 18:12 | Emergency (ER) | payer SELFPAY ==
[~2017-01-17] VITALS: Ht 160 cm; Wt 105.0 kg
[~2017-01-17 18:12] MED LIST: FERR325T PO; ORTHO NOVUM PO; VITA500T PO
[2017-01-17 18:15] VITALS: BP 128/81; PULSE 95; RESP 16; TEMP 97.9; O2SAT 98
[2017-01-17 19:03] VITALS: BP 152/88; PULSE 98; RESP 20; O2SAT 99
--- NOTE | 2017-01-17 19:29 | PD ---
HPI Chief Complaint: Edema Time Seen by Provider: 19:25 Travel History International Travel<30 days: No Contact w/Intl Traveler<30days: No Traveled to known affect area: No History of Present Illness HPI Patient is a 31-year-old female percent edema for evaluation of left arm edema. Patient was recently discharged from the hospital on Monday01/14/17. Her arm was swollen at that time but she assumed it would go down. She has been elevating it and using a heating pad. Patient was recently discharged due to anemia area to dysfunctional uterine bleeding. She was recently started on oral contraceptive pills. No other complaints at this time. PFSH Past Medical History Anemia: Yes Asthma: No Blood Disorders: No Heart Rhythm Problems: No Cancer: No Cardiovascular Problems: Yes (VALVE CLOSURE AT 18 Y/O) High Cholesterol: No Chemotherapy: No Chest Pain: Yes Congestive Heart Failure: No COPD: No Diabetes: No Diminished Hearing: No Endocrine: No Genitourinary: No Immune Disorder: No Implanted Vascular Access Dvce: Yes Musculoskeletal: No Neurologic: No Psychiatric: No Reproductive: Yes (dysfunctional uterine bleeding) Respiratory: No Immunizations Current: Yes Radiation Therapy: No Sleep Apnea: No Thyroid Disease: No Tetanus Vaccination: Unknown Influenza Vaccination: No ?: Not LMP: 12/2016 : 0 Para: 0 Past Surgical History Body Medical Devices: STENT Cardiac Surgery: Yes (stent placed) Other Surgery: Yes (STENT PLACEMENT AT 18 Y/O) Social History Alcohol Use: Yes (rarely) Tobacco Use: No Substance Use: No Allergies-Medications (Allergen,Severity, Reaction): Coded Allergies: No Known Allergies (Unverified , 01/17/17) Reported Meds & Prescriptions Reported Meds & Active Scripts Active [Ortho-Novum ] 1 EA Ea 1 Units PO DIRECTED Take 1 tab twice a day for 3 days, Then continue 1 tab once a day. Ferrous Sulfate 325 Mg Tab 325 Mg PO DAILY Vitamin C (Ascorbic Acid) 500 Mg Tab 250 Mg PO DAILY Review of Systems Except as stated in HPI: all other systems reviewed are Neg Musculoskeletal: Positive: Edema Skin: Positive Change in Pigmentation Physical Exam Narrative GENERAL: Obese, well-developed, alert female. Resting comfortably in no acute distress. SKIN: Warm and dry. Ecchymosis noted to the left antecubital fossa, erythema noted to the posterior aspect of the left forearm and elbow as well as the left hand. 1+ edema noted to the left arm. HEAD: Atraumatic. Normocephalic. EYES: Pupils equal and round. No scleral icterus. No injection or drainage. ENT: No nasal bleeding or discharge. Mucous membranes pink and moist. NECK: Trachea midline. No JVD. CARDIOVASCULAR: Regular rate and rhythm. No murmur appreciated. Positive radial pulse, brisk less than 3 second capillary refill. RESPIRATORY: No accessory muscle use. Clear to auscultation. Breath sounds equal bilaterally. GASTROINTESTINAL: Abdomen soft, non-tender, nondistended. Hepatic and splenic margins not palpable. MUSCULOSKELETAL: No obvious deformities. No clubbing. No cyanosis. NEUROLOGICAL: Awake and alert. No obvious cranial nerve deficits. Motor grossly within normal limits. Normal speech. PSYCHIATRIC: Appropriate mood and affect; insight and judgment normal. Data Data Last Documented VS Vital Signs Date Time Temp Pulse Resp B/P Pulse Ox O2 Delivery O2 Flow Rate FiO2 01/17/17 19:17 89 18 98 Room Air 01/17/17 19:03 152/88 01/17/17 18:15 97.9 Orders Us Arm Venous Doppler (01/17/17 ) Complete Blood Count With Diff (01/17/17 19:23) Basic Metabolic Panel (Bmp) (01/17/17 19:23) Act Partial Throm Time (Ptt) (01/17/17 19:23) Prothrombin Time / Inr (Pt) (01/17/17 19:23) Labs Laboratory Tests Test 01/17/17 19:55 White Blood Count 9.7 TH/MM3 Red Blood Count 4.50 MIL/MM3 Hemoglobin 9.4 GM/DL Hematocrit 29.7 % Mean Corpuscular Volume 66.0 FL Mean Corpuscular Hemoglobin 21.0 PG Mean Corpuscular Hemoglobin 31.8 % Concent Red Cell Distribution Width 36.4 % Platelet Count 237 TH/MM3 Mean Platelet Volume 9.2 FL Neutrophils (%) (Auto) 82.1 % Lymphocytes (%) (Auto) 11.3 % Monocytes (%) (Auto) 4.8 % Eosinophils (%) (Auto) 1.1 % Basophils (%) (Auto) 0.7 % Neutrophils # (Auto) 7.9 TH/MM3 Lymphocytes # (Auto) 1.1 TH/MM3 Monocytes # (Auto) 0.5 TH/MM3 Eosinophils # (Auto) 0.1 TH/MM3 Basophils # (Auto) 0.1 TH/MM3 CBC Comment AUTO DIFF Differential Comment AUTO DIFF CONFIRMED Platelet Estimate NORMAL Platelet Morphology Comment NORMAL Tear Drop Cells 1+ Ovalocytes 2+ Prothrombin Time 10.6 SEC Prothromb Time International 1.0 RATIO Ratio Activated Partial 25.0 SEC Thromboplast Time Sodium Level 139 MEQ/L Potassium Level 4.2 MEQ/L Chloride Level 107 MEQ/L Carbon Dioxide Level 22.6 MEQ/L Anion Gap 9 MEQ/L Blood Urea Nitrogen 9 MG/DL Creatinine 0.84 MG/DL Estimat Glomerular Filtration 80 ML/MIN Rate Random Glucose 84 MG/DL Calcium Level 8.6 MG/DL MDM Medical Decision Making Medical Screen Exam Complete: Yes Emergency Medical Condition: Yes Interpretation(s) Last Impressions Upper Extremity Ultrasound 01/17/17 0000 Signed Impressions: Service Date/Time: Tuesday, January 17, 2017 20:55 - CONCLUSION: Left upper extremity basilic venous thrombosis. Otherwise patent left upper extremity venous system. Kennedy Rock MD Laboratory Tests Test 01/17/17 19:55 White Blood Count 9.7 TH/MM3 Red Blood Count 4.50 MIL/MM3 Hemoglobin 9.4 GM/DL Hematocrit 29.7 % Mean Corpuscular Volume 66.0 FL Mean Corpuscular Hemoglobin 21.0 PG Mean Corpuscular Hemoglobin 31.8 % Concent Red Cell Distribution Width 36.4 % Platelet Count 237 TH/MM3 Mean Platelet Volume 9.2 FL Neutrophils (%) (Auto) 82.1 % Lymphocytes (%) (Auto) 11.3 % Monocytes (%) (Auto) 4.8 % Eosinophils (%) (Auto) 1.1 % Basophils (%) (Auto) 0.7 % Neutrophils # (Auto) 7.9 TH/MM3 Lymphocytes # (Auto) 1.1 TH/MM3 Monocytes # (Auto) 0.5 TH/MM3 Eosinophils # (Auto) 0.1 TH/MM3 Basophils # (Auto) 0.1 TH/MM3 CBC Comment AUTO DIFF Differential Comment AUTO DIFF CONFIRMED Platelet Estimate NORMAL Platelet Morphology Comment NORMAL Tear Drop Cells 1+ Ovalocytes 2+ Prothrombin Time 10.6 SEC Prothromb Time International 1.0 RATIO Ratio Activated Partial 25.0 SEC Thromboplast Time Sodium Level 139 MEQ/L Potassium Level 4.2 MEQ/L Chloride Level 107 MEQ/L Carbon Dioxide Level 22.6 MEQ/L Anion Gap 9 MEQ/L Blood Urea Nitrogen 9 MG/DL Creatinine 0.84 MG/DL Estimat Glomerular Filtration 80 ML/MIN Rate Random Glucose 84 MG/DL Calcium Level 8.6 MG/DL Vital Signs Date Time Temp Pulse Resp B/P Pulse Ox O2 Delivery O2 Flow Rate FiO2 01/17/17 19:17 89 18 98 Room Air 01/17/17 19:03 98 20 152/88 99 Room Air 01/17/17 18:15 97.9 95 16 128/81 98 Differential Diagnosis Cellulitis versus DVT versus peripheral edema versus Narrative Course Patient is a 31-year-old female presenting to the emergency department for evaluation of left arm swelling. Arm has been swollen since she was discharged from the hospital. Patient is neurovascularly intact. Labs and ultrasound ordered and pending. CBC, chemistry, coags reviewed and are unremarkable. Venous ultrasound the left arm shows an occlusive thrombus in the basilic vein. Discussed with Dr. Keys, [employer] physical [employer] teacher OB hospitalist who recommended stopping oral contraceptives pills. He suggestive patient keep her follow-up appointment with Dr. Lehman on Monday. It is uncertain if this is thromboembolic event was due to the oral contraceptive pills or from the IV that was in her left antecubital fossa. However due to recent dysfunctional uterine bleeding and admission for a hemoglobin of 5.2, the risks versus benefits of anticoagulation were evaluated and based on recommendations from Dr. Keys patient was advised to stop the oral contraceptive pills and follow-up with Dr. Lehman as scheduled. Patient was encouraged to return to emergency department for any new or worsening symptoms. Patient verbalized understanding of instructions. Patient is stable for discharge. Diagnosis Primary Impression: Acute basilic vein thrombosis Qualified Code: I82.612 - Acute basilic vein thrombosis, left Referrals: Lillian Lehman MD On Monday as scheduled Patient Instructions: Deep Venous Thrombosis (ED), General Instructions Additional Instructions: Follow-up with Dr. Lehman on Monday as scheduled Stop oral control pills Return to emergency department for any new or worsening symptoms Keep extremity elevated to help alleviate swelling. Med/Other Pt SpecificInfo: Med Stopped (oral contraceptive pills) Disposition: DISCHARGE HOME Condition: Stable Gisele Rosales Jan 17, 2017 19:28
[2017-01-17 20:40] LABS: AUTOMATED NEUTROPHIL # 7.9 TH/MM3 (1.8-7.7); BASOPHIL # 0.1 TH/MM3 (0-0.2); BASOPHIL % 0.7 % (0.0-2.0); EOSINOPHIL # 0.1 TH/MM3 (0-0.4); EOSINOPHIL % 1.1 % (0.0-4.0); HEMATOCRIT 29.7 % (35.0-46.0); LYMPH % 11.3 % (9.0-44.0); LYMPHOCYTE # 1.1 TH/MM3 (1.0-4.8); MEAN CORPUSCULAR HGB CONC 31.8 % (32.0-36.0); MONO % 4.8 % (0.0-8.0); NEUT % 82.1 % (16.0-70.0); PLATELET COUNT 237 TH/MM3 (150-450); RED CELL DISTRIBUTION WIDTH 36.4 % (11.6-17.2); WHITE BLOOD COUNT 9.7 TH/MM3 (4.0-11.0)
[2017-01-17 20:46] LABS: HEMO FLAGS AUTO DIFF
[2017-01-17 20:50] LABS: PROTHROMBIN TIME - PATIENT 10.6 SEC (9.8-11.6)
[2017-01-17 21:05] LABS: BICARBONATE 22.6 MEQ/L (21.0-32.0); POTASSIUM 4.2 MEQ/L (3.5-5.1)
[2017-01-17 21:14] LABS: OVALOCYTES 2+ (NORMAL); PLATELET ESTIMATE SMEAR NORMAL (NORMAL); PLATELET MORPHOLOGY NORMAL (NORMAL); SCAN/DIFF AUTO DIFF CONFIRMED; TEARDROP RBCS 1+ (NORMAL)
--- NOTE | 2017-01-17 21:48 | RADRPT ---
EXAM DATE/TIME: 01/17/2017 20:55 [facility] COMPARISON: No previous studies available for comparison. INDICATIONS : Left arm swelling. MEDICAL HISTORY : Cardiac valve closure. Chest pain. Dysfunctional uterine bleeding. Anemia. SURGICAL HISTORY : Cardiac stent. ENCOUNTER: Initial ACUITY: 1 day PAIN SCORE: 7/10 LOCATION: Left arm. FINDINGS: Occlusive thrombus is identified in the left basilic vein. There is spontaneous flow documented in the brachial, cephalic, axillary, and subclavian veins. The vessels are compressible and augmentation response is documented. No additional filling defects are seen. The flow is phasic with respiration. Direction of flow in the jugular vein is caudal. CONCLUSION: Left upper extremity basilic venous thrombosis. Otherwise patent left upper extremity venous system. Kennedy Rock MD on January 17, 2017 at 21:44 Board Certified Radiologist. This report was verified electronically.
== END 2017-01-17 22:35 | disposition home or self-care (01) ==
LOC: NEPE 18:12
DX: I82.612 Acute embolism and thrombosis of superficial veins of left upper extremity (principal)
CPT/HCPCS: 80048; 85025; 85610; 85730; 93971